=== PATIENT | female | born 1965 | race Caucasian/White ===

== ENCOUNTER 2021-06-19 08:58 | Outpatient (CLI) | payer BC, SELFPAY ==
--- NOTE | 2021-06-19 09:26 | MM_ITS ---
WS: [id number] Bilateral screening 3D tomosynthesis digital mammogram, 06/19/2021 Clinical Data: SCREEN Comparison: 04/16/2018, 09/12/2015, 07/16/2006. Findings: The breast parenchymal pattern shows heterogeneous density. No spiculated masses or clustered calcifi cations are seen. There are no secondary signs of carcinoma. MM/[place] [id number] Impression: 1. Negative bilateral mammogram unchanged. 2. Recommend annual screening mammograms. 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
--- NOTE | 2021-06-19 09:37 | CT_ITS ---
WS: [id number] LDCT LUNG CANCER SCREENING TECHNIQUE: Noncontrast CT of the chest with coronal and sagittal reformatted images. CLINICAL INFORMATION: HX OF TOBACCO USE COMPARISON: None. DLP: 80.80 mGy.cm DIvol: Mean CTDIvol: 1.60 (mGy) All CT scans at [facility] use at least one of these dose optimization techniques: automat ed exposure control; mA and/or kV adjustment per patient size (includes targeted exams where dose is matched to clinical indication); or iterative reconstruction. FINDINGS: Noncalcified irregular nodule LEFT lower lobe measuring 11.7 x 8.9 mm is indeterminant. Additional LE FT lower lobe nodule measuring 3.6 mm. Mild chronic emphysematous changes. No acute pulmonary infiltr ates. No focal pneumonia or pleural fluid. No mediastinal or hilar lymphadenopathy. No axillary lymphadenopathy. Normal caliber thoracic aorta. Mild aortic calcification. Adrenal glands are normal. Mild thoracic curve. Mild thoracic kyphosis. CT/CT lung screening [id number] IMPRESSION: Recommend [address] follow-up LUNG-RADS: 4A-Probably Suspicious FOLLOW UP: See Report
== END 2021-06-19 08:59 | disposition home or self-care (01) ==
LOC: RAD 08:59
PROVIDERS: Visit Provider Internal Medicine
DX: Z12.31 Encounter for screening mammogram for malignant neoplasm of breast (principal); Z87.891 Personal history of nicotine dependence
CPT/HCPCS: 71271; 77063; 77067

== ENCOUNTER → 2021-07-01 14:04 | Outpatient (BNVA) | payer BC, SELFPAY | PROVIDERS: Referring Provider Internal Medicine; Visit Provider Internal Medicine | DX: R93.89 Abnormal findings on diagnostic imaging of other specified body structures (principal); E05.90 Thyrotoxicosis, unspecified without thyrotoxic crisis or storm | CPT/HCPCS: 36415; 83516; 84439; 84443; 84480; 86376; 86800 ==

== ENCOUNTER 2021-09-12 11:55 | Outpatient (CLI) | payer BC, SELFPAY ==
[2021-09-12 13:14] LABS: Free T4 Free Thyroxine 0.88 ng/dL (0.82-1.77); Thyroid Stimulating Hormone 13.87 uIU/mL (0.27-4.20)
== END 2021-09-12 11:56 | disposition home or self-care (01) ==
LOC: LAB 11:57
PROVIDERS: Internal Medicine; Visit Provider Internal Medicine
DX: E03.9 Hypothyroidism, unspecified (principal); E05.90 Thyrotoxicosis, unspecified without thyrotoxic crisis or storm; R93.89 Abnormal findings on diagnostic imaging of other specified body structures
CPT/HCPCS: 36415; 84439; 84443

== ENCOUNTER → 2021-11-04 11:25 | Outpatient (BNVA) | payer BC, SELFPAY | PROVIDERS: PCP Internal Medicine; Visit Provider Internal Medicine | DX: E03.9 Hypothyroidism, unspecified (principal); R73.03 Prediabetes | CPT/HCPCS: 36415; 83036; 84439; 84443 ==

== ENCOUNTER 2021-11-13 14:37 | Outpatient (CLI) | payer BC, SELFPAY ==
--- NOTE | 2021-11-13 14:48 | CT_ITS ---
WS: [id number] CT CHEST TECHNIQUE: Noncontrast CT of the chest with coronal and sagittal reformatted images. CLINICAL INFORMATION: FORMER SMOKER COMPARISON: CT lung screen June 19, 2021 DLP: 540.[address] scans at [facility] use at least one of these dose optimization techniques: automated e xposure control; mA and/or kV adjustment per patient size (includes targeted exams where dose is matc hed to clinical indication); or iterative reconstruction. FINDINGS:Previously described LEFT lower lobe nodules have resolved in the interim. No new or suspici ous pulmonary parenchymal opacities. Previously described lesions were likely inflammatory. Mild chronic emphysematous changes. No mediastinal or hilar lymphadenopathy. No axillary lymphadenopathy. Normal caliber thoracic aorta. Mild aortic calcification. Adrenal glands are normal. Mild thoracic curve. Mild thoracic kyphosis CT/CT chest wo con [id number] IMPRESSION: 1. Previously described LEFT lower lobe nodules have resolved in the interim. No new or suspicious pulmonary parenchymal opacities. Previously described lesi ons were likely inflammatory. 2. No mediastinal or hilar lymphadenopathy. 3. No focal pneumonia or pleural fluid.
== END 2021-11-13 14:38 | disposition home or self-care (01) ==
PROVIDERS: PCP Internal Medicine; Visit Provider Internal Medicine
DX: Z87.891 Personal history of nicotine dependence (principal)
CPT/HCPCS: 71250

== ENCOUNTER → 2022-11-07 09:57 | Outpatient (BNVA) | payer BC, SELFPAY | PROVIDERS: PCP Internal Medicine; Visit Provider Internal Medicine | DX: E03.8 Other specified hypothyroidism (principal); E06.3 Autoimmune thyroiditis; E04.2 Nontoxic multinodular goiter | CPT/HCPCS: 36415; 84439; 84443 ==

== ENCOUNTER 2022-11-19 07:00 | Outpatient (CLI) | payer BC, SELFPAY ==
--- NOTE | 2022-11-19 07:30 | US_ITS ---
WS: [id number] THYROID ULTRASOUND HISTORY: multiple thyriod nodules COMPARISON: 05/29/2021 Right lobe: 1.9 cm x 2.2 cm x 5.5 cm (w x ap x l). Volume: 12.2 cm3. Mildly enlarged gland. Diffuse coarse echotexture throughout. There are scattered ill-defined nodules and increased vascularity. There is no well-formed discrete nodule. Left lobe: 1.6 cm x 2.1 cm x 5.4 cm (w x ap x l). Volume: 9.4 cm3. Enlarged gland with coarse echotexture and scattered ill-defined hypoechoic nodules. No solid mass. Isthmus: 0.7 cm. IMPRESSION: 1. Enlarged thyroid with increased vascularity. Most consistent with Juliet's thyroiditis. 2. No developing mass or worsening of the very small hypoechoic nodules.
== END 2022-11-19 07:01 | disposition home or self-care (01) ==
PROVIDERS: PCP Internal Medicine; Visit Provider Internal Medicine
DX: E03.8 Other specified hypothyroidism (principal); E04.2 Nontoxic multinodular goiter; E06.3 Autoimmune thyroiditis
CPT/HCPCS: 76536

== ENCOUNTER 2023-05-06 11:50 | Outpatient (CLI) | payer BC, SELFPAY ==
[2023-05-06 13:13] LABS: Free T4 Free Thyroxine 1.45 ng/dL (0.82-1.77); Thyroid Stimulating Hormone 3.29 uIU/mL (0.27-4.20)
== END 2023-05-06 11:51 | disposition home or self-care (01) ==
LOC: LAB 11:51
PROVIDERS: PCP Internal Medicine; Visit Provider Internal Medicine
DX: E03.8 Other specified hypothyroidism (principal); E06.3 Autoimmune thyroiditis; E04.2 Nontoxic multinodular goiter
CPT/HCPCS: 36415; 84439; 84443

== ENCOUNTER 2024-01-26 12:36 | Outpatient (CLI) | payer BC, SELFPAY ==
--- NOTE | 2024-01-26 13:15 | US_ITS ---
WS: [email or web address] ULTRASOUND THYROID TECHNIQUE: Ultrasound of the thyroid. CLINICAL INFORMATION: multiple thyroid nodules COMPARISON: 2022 FINDINGS: Thyroid: Enlarged heterogeneous thyroid with diffuse coarse micronodular background echotexture. Asso ciated increased vascularity bilaterally similar to previous. Findings most compatible with Juliet 's thyroiditis. No dominant nodules. Right thyroid lobe: 5.5 cm x 2.1 cm x 2.2 cm Left thyroid lobe: 4.1 cm x 1.5 cm x 1.9 cm. Isthmus: 0.6 mm. Cervical lymphadenopathy: None. US/US thyroid [id number] IMPRESSION: 1. Findings most compatible with Juliet's thyroiditis. 2. No dominant nodules for TI-RADS classification or biopsy.
== END 2024-01-26 12:37 | disposition home or self-care (01) ==
PROVIDERS: PCP Internal Medicine; Visit Provider Internal Medicine
DX: E04.2 Nontoxic multinodular goiter (principal); R93.89 Abnormal findings on diagnostic imaging of other specified body structures
CPT/HCPCS: 76536

== ENCOUNTER → 2024-02-10 09:10 | Outpatient (BNVA) | payer BC, SELFPAY | PROVIDERS: PCP Internal Medicine; Visit Provider Internal Medicine | DX: E03.8 Other specified hypothyroidism (principal); E06.3 Autoimmune thyroiditis; E04.2 Nontoxic multinodular goiter | CPT/HCPCS: 84439; 84443 ==

== ENCOUNTER → 2024-08-16 10:43 | Outpatient (BNVA) | payer BC, SELFPAY | PROVIDERS: PCP Internal Medicine; Visit Provider Internal Medicine | DX: E04.2 Nontoxic multinodular goiter (principal); E03.8 Other specified hypothyroidism; E06.3 Autoimmune thyroiditis | CPT/HCPCS: 36415; 84439; 84443 ==